=== PATIENT | male | born 1950 | race Caucasian/White ===

== ENCOUNTER 2022-02-10 13:41 | Inpatient (IN) | payer MEDICARE, OTHER, SELFPAY ==
[2022-02-10] VITALS (8 sets, daily range): BP systolic 108–124; BP diastolic 63–67; PULSE 89–103; RESP 15–21; TEMP 36.5–36.6; O2SAT 93–98; BMI 21.5; BMI 19.1
--- NOTE | 2022-02-10 14:47 | EKG12_ITS ---
Test Reason : sob Blood Pressure : / mmHG Vent. Rate : 100 BPM Atrial Rate : 100 BPM P-R Int : 144 ms QRS Dur : 092 ms QT Int : 358 ms P-R-T Axes : 075 083 064 degrees QTc Int : 461 ms Sinus rhythm with Premature atrial complexes Minimal voltage criteria for LVH, may be normal variant ( Rosebud product ) Anteroseptal infarct , age undetermined , cannot be excluded Abnormal ECG Confirmed by JOYCE ROUSE, ALY ([id number]), magazine editor JANA MARLOW ([id number]) on 02/12/2022 8:04:14 AM Referred By: Wolf Confirmed By:ALY COOK MD
--- NOTE | 2022-02-10 14:49 | EDS_ITS ---
HPI History of Present Illness Chief Complaint: Shortness of Breath Informant: patient and family Narrative Narrative: Patient presents with daughter and granddaughter progressive dyspnea worsening over 6 weeks time. Noted some feet swelling at that time. Denies orthopnea however exertional dyspnea with diaphoresis. Yesterday going up 13 steps was winded and diaphoretic per family. Took him a few minutes to recover. Denies chest pains or tightness. Reports however 2 months ago while mowing the lawn significantly felt bad for a few days. Denies indigestion at that time. Denies chest pains at that time. He has not seen a PCP in years however did see surgeon Dr. Whitley a year ago for inguinal hernia repair. Tobacco history however stopped smoking 5 weeks ago when symptoms started to get worse. No history of stress test or heart caths. He denies any cough. Prior similar symptoms: No PFSH PFSH Medical History Anxiety Depression Seizures Smoker Substance abuse Home Medications NK 02/10/22 [History Last Taken Unknown] Allergy/AdvReac Type Severity Reaction Status Date / Time bee venom protein (honey bee) Allergy Anaphylaxis Verified 02/10/22 13:47 Penicillins Allergy Other Verified 02/10/22 13:47 Surgical History History of inguinal hernia repair Social History Smoking Status: Former smoker ROS ROS ED Constitutional Constitutional ED: Denies chills, fever(s) or sweats Eyes Eyes: Denies change in vision ENT ENT ED: Denies dysphagia or sore throat Cardiovascular Cardiovascular: Reports leg edema; Denies chest pain, palpitations or racing heartbeat Respiratory/Chest Respiratory/Chest: Reports dyspnea and dyspnea on exertion; Denies cough Gastrointestinal Gastrointestinal: Denies abdominal pain, diarrhea, nausea or vomiting Genitourinary Genitourinary ED: Denies dysuria, hematuria or urinary frequency Musculoskeletal Musculoskeletal: Denies back pain, extremity pain or neck pain Integumentary Denies rash or wounds Neurologic Neurologic: Denies headache(s), paresthesias or weakness EXAM Physical Exam Const Vital Signs: 02/10/22 13:43 02/10/22 14:04 02/10/22 14:16 Temperature 97.7 F L Temperature Source Temporal Pulse Rate 100 97 Respiratory Rate 20 H 15 Respiratory Effort Short of Breath Respiratory Depth Shallow Respiratory Pattern Normal Blood Pressure 108/67 121/63 H Blood Pressure Mean 80 82 Pulse Ox 96 98 Oxygen Delivery Method Room Air Room Air Room Air 02/10/22 16:19 Temperature Temperature Source Pulse Rate 91 Respiratory Rate 16 Respiratory Effort Respiratory Depth Respiratory Pattern Blood Pressure 108/67 Blood Pressure Mean 80 Pulse Ox 93 Oxygen Delivery Method Room Air Positive well nourished and well developed General Appearance ED: well developed and NAD HEENT Reports moist mucous membranes normocephalic and atraumatic Eyes PERRL, EOMs intact bilaterally and conjunctivae normal General Eye ED: Yes normal appearance of both eyes Neck no lymphadenopathy and supple General: Negative for tenderness Chest Wall Chest: Negative for tenderness Resp normal respiratory effort and normal air movement Effort and Inspection: symmetric chest movement; Negative for respiratory distress Cardio regular rate, regular rhythm and no murmurs Peripheral Pulses: pulses 2+ throughout GI normal to inspection, nondistended, normoactive bowel sounds and non-tender Palpation: Negative for guarding or rebound tenderness present Back/Spine no CVA tenderness and no thoracic nor lumbar tenderness Extremity normal to inspection Extremity Narrative: Bilateral feet edema. General Extremety ED: Yes edema; Negative for tenderness General Extremity: edema Neuro oriented x3 and no sensory deficits noted Sensorium / Orientation: awake and alert Skin no rashes or lesions noted and no wounds MDM MDM MDM Narrative Medical decision making narrative: Patient at rest with no symptoms. EKG with large Q waves anterior leads. No old for comparison. With patient's history concerns he may had an VA approximately 8 weeks ago while mowing the lawn. He became more symptomatic over the last 6 weeks with swelling. He denies orthopnea. Tobacco history. Troponin returned at 1792. BNP 1013. Chest x-ray reviewed by myself and read by radiology concerns for vascular congestion. White count 15 hemoglobin 12.8. Creatinine 0.97. I performed a bedside ultrasound, appears lateral wall motion abnormality mild. There is no septal abnormality. I did not see any right heart dilatation. I discussed with trucker Dr. Enciso, will start heparin, he will be admitted to medicine for echocardiogram and likely catheterization. I spoke with hospitalist Dr. Cruz for admission. I did order 20 mg IV Lasix for concerns for heart failure. Lab Data Attestation: I reviewed the patient's lab results. Labs: Laboratory Results - last 24 hr 02/10/22 02/10/22 02/10/22 15:18 15:18 15:18 WBC 15.2 H RBC 4.80 Hgb 12.8 L Hct 40.6 MCV 84.6 MCH 26.7 L MCHC 31.5 L RDW Std Deviation 47.0 H RDW Coeff of Leeanne 15.3 H Plt Count 322 MPV 11.6 Immature Gran % (Auto) 0.800 Neut % (Auto) 80.6 H Lymph % (Auto) 8.7 L [place] % (Auto) 7.8 Eos % (Auto) 1.8 Baso % (Auto) 0.3 Absolute Neuts (auto) 12.3 H Absolute Lymphs (auto) 1.32 Nucleated RBC % 0 PT 14.2 INR 1.1 APTT 29.5 Sodium 140 Potassium 4.3 Chloride 108 H Carbon Dioxide 25.0 Anion Gap 7 BUN 20 H Creatinine 0.97 Estim Creat Clear Calc 68.19 Est GFR (MDRD) Af Amer 98 Est GFR (MDRD) Non-Af 81 BUN/Creatinine Ratio 20.6 H Glucose 112 H Calcium 9.3 Troponin I High Sens 1792 H* B-Natriuretic Peptide 02/10/22 02/10/22 15:18 17:18 WBC RBC Hgb Hct MCV MCH MCHC RDW Std Deviation RDW Coeff of Leeanne Plt Count MPV Immature Gran % (Auto) Neut % (Auto) Lymph % (Auto) [place] % (Auto) Eos % (Auto) Baso % (Auto) Absolute Neuts (auto) Absolute Lymphs (auto) Nucleated RBC % PT 14.6 INR 1.2 APTT 32.7 Sodium Potassium Chloride Carbon Dioxide Anion Gap BUN Creatinine Estim Creat Clear Calc Est GFR (MDRD) Af Amer Est GFR (MDRD) Non-Af BUN/Creatinine Ratio Glucose Calcium Troponin I High Sens B-Natriuretic Peptide 1013.2 H Radiography Diagnostic Testing: Clinical Impression(s) from Imaging Studies Chest X-Ray 02/10/22 15:05 IMPRESSION: Findings suggestive of a mild degree of CHF superimposed on chronic interstitial fibrosis with blunting of both cause phrenic angles. Electronically Signed: Seven Zhang MD at 15:30 EDT , EKG Initial EKG: Attestation: I personally reviewed and interpreted this EKG as follows: Comments: Sinus rate of 100, no ST changes. Large Q waves noted on the anterior leads. No old for comparison. Critical Care Time Critical Care Time: Yes Critical care time (excluding procedures): 30-74 minutes, Discussing w/Patient &/or Family/Glass Checker, Discussing w/Consultants, Arranging Admission or Transfer, Performing Direct Patient Care at Bedside and - (40 minutes) Discharge Plan Dx/Rx/DC Orders Clinical Impression: NSTEMI (non-ST elevated myocardial infarction), CHF (congestive heart failure), Exertional shortness of breath Disposition Disposition: Acute Care Hospital [facility] Discharge Date/Time: 02/10/22 17:54
--- NOTE | 2022-02-10 15:05 | RAD_ITS ---
STUDY: X-RAY CHEST REASON FOR EXAM: Male, 72 years old. Chronic shortness of breath. Swelling of lower extremities. TECHNIQUE: PA and lateral views of the chest. COMPARISON: None. FINDINGS: EKG electrodes are seen. There is evidence of increased interstitial markings involving both lungs worse in the lower lobes with areas of confluence and honeycombing. This is suggestive of chronic interstitial fibrosis. Mild degree of the overlying CHF should be ruled out. There is blunting of both kyphotic angles. Normal size heart. Normal mediastinum and glenn. Normal visualized pulmonary arteries. There is atherosclerotic calcification of the aortic arch with tortuosity. There are degenerative changes of the visualized thoracic spine. Normal visualized ribs, clavicles, and shoulders. There is no demonstrated abnormality of the visualized soft tissue structures of the upper abdomen. RAD/Chest PA and Lateral IMPRESSION: Findings suggestive of a mild degree of CHF superimposed on chronic interstitial fibrosis with blunting of both cause phrenic angles. Electronically Signed: Seven Zhang MD at 15:30 EDT ,
[2022-02-10] MEDS: Aspirin 81 MG TAB.CHEW 324 MG PO (15:16)
[2022-02-10 15:29] LABS: Absolute Lymphocyte Count 1.32 X10^3/uL (0.83-4.51); Absolute Neutrophil Count 12.3 X10^3/uL (2.0-7.7); Basophil# 0.05 X10^3/uL; Basophil% 0.3 % (0-1); Eosinophil# 0.27 X10^3/uL; Eosinophils% 1.8 % (0-5); Hematocrit 40.6 % (40-54); Hemoglobin 12.8 g/dL (13.0-16.5); Lymphocyte # 1.32 X10^3/ul (0.83-4.51); Lymphocyte % 8.7 % (19-41); Mean Corp Hgb Conc 31.5 g/dL (32-36); Mean Corpuscular Hgb 26.7 pg (27.0-32.0); Mean Corpuscular Volume 84.6 fL (80-94); Mean Platelet Vol. 11.6 fl (6.2-12.0); Monocyte# 1.19 X10^3/uL; Monocyte% 7.8 % (0-10); NRBC Flagged by Analyzer 0 % (0-5); Neutrophil # 12.28 X10^3/uL (2.7-7.7); Neutrophil % 80.6 % (47-70); Platelet Count 322 K/mm3 (150-450); RBC Distribution Width CV 15.3 % (11.6-14.6); White Blood Count 15.2 K/mm3 (4.4-11.0)
[2022-02-10 15:42] LABS: International Normalized Ratio 1.1; Prothrombin Time (Protime)PT. 14.2 SECONDS (11.7-14.9)
[2022-02-10 15:43] LABS: Partial Thromboplast Time 29.5 Seconds (24.1-36.2)
[2022-02-10 16:06] LABS: Anion Gap 7 (5-15); BUN 20 mg/dL (7-18); BUN/Creat Ratio 20.6 RATIO (10-20); Calcium,Total 9.3 mg/dL (8.5-10.1); Chloride 108 mmol/L (98-107); Creatinine, Serum 0.97 mg/dL (0.70-1.30); EST Glomerular Filtration Rate 81 mL/min (>60); Est Glom Filt Rate - Afr Amer 98 mL/min (>60); Estimated Creatinine Clearance 68.19 ml/min; Glucose 112 mg/dL (74-106); Potassium 4.3 mmol/L (3.5-5.1); Sodium Level 140 mmol/L (136-145); Troponin-I HS (w/2H Reflex) 1792 pg/mL (3.0-78.0)
[2022-02-10 16:51] LABS: BNP,B-Type NATRIURETIC PEPTIDE 1013.2 pg/mL (0-100)
[2022-02-10 17:23] LABS: Reflex Troponin-HS? (from REC) Y
[2022-02-10] MEDS: Furosemide 20 MG/2 ML VIAL IV ×2 (17:25→21:44)
[2022-02-10] MEDS: Heparin Injection (Vial) 5,000 UNIT/ML VIAL 4000 UNIT IV (17:25)
[2022-02-10] MEDS: HEPARIN/D5w 25,000 UNITS 25,000 UNITS/250 ML IV.SOLN. 8 UNITS CONT INF (17:26)
[2022-02-10 17:36] LABS: International Normalized Ratio 1.2; Prothrombin Time (Protime)PT. 14.6 SECONDS (11.7-14.9)
[2022-02-10 17:37] LABS: Partial Thromboplast Time 32.7 Seconds (24.1-36.2)
--- NOTE | 2022-02-10 17:40 | HP.PCM_ITS ---
Documented by User: LUDY Colindres 02/10/22 17:57 HPI - General General Date of Admission: 02/10/22 Date of Service: 02/10/22 Chief Complaint: Shortness of breath HPI Narrative DEMETRIUS GABRIEL, is a 72 M who presents with complaints of shortness of breath. Patient states approximately 3 months ago he had a similar episode and since then he has noticed his legs have been swelling. Patient states approximately 1 month patient has had progressively worsening dyspnea. Family encouraged patient to come in and he was agreeable since his shortness of breath is getting worse. Patient states that he has not seen a physician in years other than seeing a surgeon for his hiatal hernia repair in August. Patient states that he quit smoking approximately 1 month ago because of the shortness of breath. Pat tamara states that he has no known cardiac history and has never had a stress test or heart cath in the past. Patient states that his hernia repair is surgical history. [facility] Medical History Anxiety Depression Seizures Smoker Substance abuse Home Medications NK 02/10/22 [History Last Taken Unknown] Allergy/AdvReac Type Severity Reaction Status Date / Time bee venom protein (honey bee) Allergy Anaphylaxis Verified 02/10/22 13:47 Penicillins Allergy Other Verified 02/10/22 13:47 Surgical History History of inguinal hernia repair Social History Smoking Status: Former smoker ROS Constitutional Constitutional: Reports weakness and weight gain; Denies anorexia, change in weight, chills, fatigue, fever(s) or malaise Cardiovascular Cardiovascular: Reports dyspnea on exertion, easily tiring during activity, fatigue, leg edema and weakness in extremities; Denies chest pain or edema Respiratory/Chest Respiratory/Chest: Reports shortness of breath with exertion; Denies cough Gastrointestinal Gastrointestinal: Denies abdominal pain, constipation, diarrhea, nausea or vomiting Genitourinary Genitourinary: Denies dysuria Musculoskeletal Musculoskeletal: Denies back pain, extremity pain, joint pain, joint stiffness or joint swelling Integumentary Integumentary: Denies dry skin Neurologic Neurologic: Denies abnormal gait, abnormal speech, confusion, dizziness or focal weakness Psychiatric Psychiatric: Denies anxiety or depression Endocrine Endocrinology: Denies change in body appearance Hematologic/Lymphatic Hematologic/Lymphatic: Denies anemia Vital Signs Vital Signs Vital Signs: 02/10/22 13:43 02/10/22 14:04 02/10/22 14:16 Temperature 97.7 F L Temperature Source Temporal Pulse Rate 100 97 Respiratory Rate 20 H 15 Respiratory Effort Short of Breath Respiratory Depth Shallow Respiratory Pattern Normal Blood Pressure 108/67 121/63 H Blood Pressure Mean 80 82 Pulse Ox 96 98 Oxygen Delivery Method Room Air Room Air Room Air 02/10/22 16:19 Temperature Temperature Source Pulse Rate 91 Respiratory Rate 16 Respiratory Effort Respiratory Depth Respiratory Pattern Blood Pressure 108/67 Blood Pressure Mean 80 Pulse Ox 93 Oxygen Delivery Method Room Air Weight Weight: 150 lb Body Mass Index (BMI) 21.5 Physical Exam Const alert, oriented x3 and no apparent distress General Appearance: cooperative HEENT normocephalic, head/scalp atraumatic and moist oral mucous membranes Eyes conjunctivae normal and no scleral icterus Neck no lymphadenopathy and supple General: trachea midline Resp normal respiratory effort and normal air movement Effort and Inspection: able to speak in complete sentences and symmetric chest movement Auscultation: crackles bilateral base and diminished lung sounds Cardio regular rate, regular rhythm, S1 normal heart sound and S2 normal heart sound Heart Sounds: murmur systolic GI normal to inspection, nondistended, normoactive bowel sounds, soft to palpation and non-tender Extremity normal capillary refill and no clubbing, cyanosis or edema Skin General Skin Exam: no breakdown Lesions: no lesions Rashes: no rashes Neuro no focal motor deficits and no sensory deficits noted Speech: speech normal Psych thought process normal, cooperative and affect normal Results Lab / Micro Data Result Diagrams: 02/10/22 15:18 02/10/22 15:18 Labs: Laboratory Results - last 24 hr 02/10/22 15:18: WBC 15.2 H, RBC 4.80, Hgb 12.8 L, Hct 40.6, MCV 84.6, MCH 26.7 L , MCHC 31.5 L, RDW Std Deviation 47.0 H, RDW Coeff of Leeanne 15.3 H, Plt Count 322, MPV 11.6, Immature Gran % (Auto) 0.800, Neut % (Auto) 80.6 H, Lymph % (Auto) 8.7 L, Lee % (Auto) 7.8, Eos % (Auto) 1.8, Baso % (Auto) 0.3, Absolute Neuts (auto) 12.3 H, Absolute Lymphs (auto) 1.32, Nucleated RBC % 0 02/10/22 15:18: PT 14.2, INR 1.1, APTT 29.5 02/10/22 15:18: Sodium 140, Potassium 4.3, Chloride 108 H, Carbon Dioxide 25.0, Anion Gap 7, BUN 20 H, Creatinine 0.97, Estim Creat Clear Calc 68.19, Est GFR (MDRD) Af Amer 98, Est GFR (MDRD) Non-Af 81, BUN/Creatinine Ratio 20.6 H, Glucose 112 H, Calcium 9.3, Troponin I High Sens 1792 H* 02/10/22 15:18: B-Natriuretic Peptide 1013.2 H 02/10/22 17:18: PT 14.6, INR 1.2, APTT 32.7 Radiology Impression Chest X-Ray 02/10/22 15:05 IMPRESSION: Findings suggestive of a mild degree of CHF superimposed on chronic interstitial fibrosis with blunting of both cause phrenic angles. Electronically Signed: Seven Zhang MD at 15:30 EDT , Assessment & Plan Assessment/Plan (1) NSTEMI (non-ST elevated myocardial infarction): (2) CHF (congestive heart failure): PLAN: Plan 1. NSTEMI -Admit to PCU -Consult cardiology, case discussed with Dr. Enciso by ER physician as well as attending physician. -Patient initiated on carvedilol 3.125 twice daily and atorvastatin 40 mg nightly -CBC, CMP, lipid panel ordered for a.m. -Patient initiated on heparin drip in ER, will continue -Plan for patient to get echocardiogram in a.m. and subsequent cardiac ca theterization -Has a MODESTA score of 3 and heart score of 8 -Trend cardiac enzymes -N.p.o. at midnight for cardiac catheterization -Patient has elevated white blood cell count however this is likely reactive -Troponin 1792 and BNP 1013.2 -EKG in ER demonstrates sinus rate of [address] changes. Large Q waves noted on the anterior leads 2. Congestive heart failure, unknown etiology -Patient has significant systolic murmur and 2+ pitting edema to lower extremities -Elevate bilateral lower extremities -Daily weights with strict intake and output -Lasix 20 mg every 8 hours ordered -cardiology following DVT prophylaxis-not indicated, patient on heparin drip This patient was seen by LUDY Colindres under the supervision of Dr. Cruz. 30 minutes spent in clinical coordination of patient's plan of care. Documented by User: Dr. Aravind Cruz, 02/10/22 18:16 HPI - General General Date of Admission: 02/10/22 [facility] Medical History Anxiety Depression Seizures Smoker Substance abuse Home Medications NK 02/10/22 [History Last Taken Unknown] Allergy/AdvReac Type Severity Reaction Status Date / Time bee venom protein (honey bee) Allergy Anaphylaxis Verified 02/10/22 13:47 Penicillins Allergy Other Verified 02/10/22 13:47 Surgical History History of inguinal hernia repair Social History Smoking Status: Former smoker Results Lab / Micro Data Result Diagrams: 02/10/22 15:18 02/10/22 15:18 Assessment & Plan Assessment/Plan (1) NSTEMI (non-ST elevated myocardial infarction): (2) CHF (congestive heart failure): Charges/Coding Addendum Addendum: Patient was seen and salmon independently of Jacquie Ferguson today, he came to the ER today for evaluation of shortness of breath, patient states that he has been actually short of breath times several weeks but has been progressively getting worse. Patient has also had lower extremity edema. The patient's daughter is present at the time my examination and she states that she noted that he has had lower extremity swelling for at least 2 to 3 months-she believes it started after he was mowing the lawn 1 afternoon and felt unwell, he was lying in bed for approximately 2 days after this incident. Patient does not go to a doctor on a routine basis. Patient denies any chest pain today. Patient takes no medications on a routine basis. On examination he appeared in good health and spirits. Vital signs as documented. Skin warm and dry and without overt rashes. Neck without JVD, neck was supple, trachea midline, thyroid was normal. Lungs-there were noted to be inspiratory rales at the bases bilaterally, normal air movement was noted. Heart exam notable for regular rhythm, there was noted to be a 3/6 systolic murmur at the right sternal border and apex, no rubs or gallops. Abdomen unremarkable and without evidence of organomegaly, masses, or abdominal aortic enlargement. Bowel sounds are present, abdomen is not distended. Extremities nonedematous, no cyanosis was noted, no clubbing was noted. Neuro: Cranial nerves II through XII are grossly intact, no focal motor deficits were noted, sensation to light touch and pinprick intact, motor exam 5/5 throughout. Psych: Patient is alert and oriented x3, he does not appear anxious or depressed, he does not appear agitated. Work-up in the emergency room included an EKG which showed nonspecific ST elevation in the anterior wall leads along with Q waves present, patient's chest x-ray showed evidence of mild CHF, patient's pulse ox on room air was adequate above 90% even on ambulation. Patient had an elevated troponin at 1792 and an elevation in his white blood cell count at 15,200, patient's beta nitric peptide was elevated at 1013. Impression: #1 [id number] will be admitted to PCU, he will be seen in consultation by cardiology, patient will have an echocardiogram early tomorrow morning and then most probably will need to undergo heart catheterization tomorrow. Patient is aware of this, we discussed it with his daughter. Patient will be placed on a beta-jonatan and a statin, lipid profile will be obtained tomorrow morning. #2 systolic murmur-possibly secondary to mitral regurg, patient will have an echocardiogram tomorrow morning #3 congestive heart failure-type unknown at this time, suspect it may be systolic congestive heart failure, patient will be placed on IV Lasix 20 mg every 8 hours along with potassium supplementation #4 leukocytosis-possibly reactive in nature, CBC will be rechecked I have reviewed Jacquie Ferguson's history and physical including her medical assessment and plan of care and with the above additions endorse it. Total clinical time spent by myself addressing the patient's medical issues, reviewing the data, and communicating with patient's care team: 48-minutes Visit Charges Inpatient E&M: [id number] Init Hosp L3
--- NOTE | 2022-02-10 18:23 | EKG12_ITS ---
Test Reason : SERIES Blood Pressure : / mmHG Vent. Rate : 082 BPM Atrial Rate : 082 BPM P-R Int : 150 ms QRS Dur : 092 ms QT Int : 436 ms P-R-T Axes : 062 078 078 degrees QTc Int : 509 ms Sinus rhythm with Premature atrial complexes Moderate voltage criteria for LVH, may be normal variant ( Sokolow-Etienne , Vlad product ) Septal infarct , age undetermined ST & T wave abnormality, consider anterolateral ischemia Prolonged QT Abnormal ECG When compared with ECG of 10-FEB-2022 19:24, MANUAL COMPARISON REQUIRED, DATA IS UNCONFIRMED Confirmed by MAY ROUSE, IGLESIA ([id number]), film editor supervisor JANA MARLOW ([id number]) on 02/13/2022 2:19:58 PM Referred By: ANNA Confirmed By:СЕРГЕЙ OLVERA MD
--- NOTE | 2022-02-10 18:45 | PCM.CONS.C ---
Assessment & Plan Assessment/Plan (1) NSTEMI (non-ST elevated myocardial infarction): PLAN: The patient has findings compatible with a non-ST segment elevation OK. Its unclear if he had a previous acute coronary syndrome event approximately 2 to 3 months ago based upon his history. However at the present time he does have ongoing concerning symptoms and abnormal cardiac enzymes and an abnormal ECG. At the moment he will continue to be monitored. He will initiate medical therapy which will include agents such as aspirin, nitrates as needed, beta-blockers, lipid-lowering agents, antiplatelet and anticoagulant agents, etc. He will have further evaluation of his left ventricular wall motion and systolic function with a transthoracic echocardiogram. He has been recommended for further evaluation of his coronary anatomy with a diagnostic cardiac catheterization. The procedure and risk were discussed with the patient with his family members present. He was agreeable to this approach. (2) Cardiac murmur: PLAN: The patient does have a cardiac murmur. There is concern this may be related to aortic valve stenosis. However, other valvular related abnormalities such as MR cannot necessarily be excluded. If he does have hemodynamically significant valvular heart disease this could be contributing factor to some of his symptoms/findings. At the present time he will be further evaluated with a transthoracic echocardiogram. (3) CHF (congestive heart failure): PLAN: The patient also appears to have evidence of CHF based upon his history, exam, and his radiologic studies. This may be secondary to concerns of a previous acute coronary syndrome event and possible left ventricular systolic dysfunction as well as underlying valvular heart disease. At the moment he will be monitored. He will continue medical therapy which will include diuretic therapy. He will continue noninvasive and invasive evaluation as noted above. (4) Weight loss: PLAN: The patient states he has had a weight loss of approximately 20 pounds recently. If the patient is found to have significant cardiovascular disease especially with respect to diminished LV systolic function/LVEF, then he could have cardiac cachexia. Otherwise the patient will need to be further evaluated for other etiologies of unexplained weight loss. Addt'l Comments The above has been discussed and reviewed with the patient, his daughter, his granddaughter, Dr. Aldana of the [facility] emergency department staff and Dr. Cruz the [facility] staff. This note was generated using a voice recognition system and there may be incorrect words, spelling or punctuation that were not noted when reviewing the office note prior to saving. HPI Consult Data Date of Consult: 02/10/22 HPI Narrative HPI Narrative: DEMETRIUS GABRIEL, is a 72 year old white male who presents for vascular consultation from based upon concerns of shortness of breath/dyspnea with exertion, peripheral pitting edema, a cardiac murmur, abnormal cardiac enzymes compatible with a non-ST segment elevation OK, superimposed upon a recent approximate 20 pound weight loss. According to the patient, his daughter, and his granddaughter, he had been active until approximately 2 to 3 months ago. He states after using a push mower on an incline he felt tired and fatigued. He states for approximately 2 days he felt that he could do nothing. He does not recall any chest discomfort at that time. Since that time he states he has noted shortness of breath and dyspnea with exertion such as going up a flight of stairs. He states that he has still been mowing the lawn on his riding lawnmower but has not used a push mower. His family states that he cannot lie still for very long without changing position because of his breathing. He has noted episodes of diaphoresis. There is been no report of nausea or emesis. Since the original event he began noting lower extremity edema. This is progressed over time. He states also over the period of time he has noted an approximate 20 pound weight loss. He was brought to the emergency department this day for further evaluation. He was found to have abnormal high-sensitivity troponin I levels and an abnormal ECG. His chest x-ray suggested increased pulmonary vascularity. He was subsequently recommended for admission to the hospital for further evaluation and care including cardiovascular consultation. He states that he does not traditionally follow with a physician. He states earlier this year through the [facility] system in [place], [place], he underwent an inguinal hernia repair. To the best of his knowledge this was without obvious cardiovascular complication. He states that he occasionally has taken an aspirin or part of an aspirin tablet with the hopes this would help benefit his heart. He states he does this based upon his father's history and his grandfather's history of having cardiovascular disease at approximately the same age that he is now. [facility] Medical History Anxiety Depression Seizures Smoker Substance abuse Home Medications NK 02/10/22 [History Last Taken Unknown] Allergy/AdvReac Type Severity Reaction Status Date / Time bee venom protein (honey bee) Allergy Anaphylaxis Verified 02/10/22 13:47 Penicillins Allergy Other Verified 02/10/22 13:47 Surgical History History of inguinal hernia repair Social History Smoking Status: Former smoker ROS Constitutional Constitutional: Reports fatigue, poor appetite and weakness Eyes Eyes: Reports none ENT HEENT: Reports none Cardiovascular Cardiovascular: Reports diaphoresis, dyspnea, dyspnea at rest, dyspnea on exertion and edema Respiratory/Chest Respiratory/Chest: Reports dyspnea and dyspnea on exertion Gastrointestinal Gastrointestinal: Reports weight changes Genitourinary Genitourinary: Reports as per HPI Musculoskeletal Musculoskeletal: Reports as per HPI Integumentary Integumentary: Reports as per HPI Neurologic Neurologic: Reports as per HPI Psychiatric Psychiatric: Reports as per HPI Physical Exam Const alert, oriented x3 and no apparent distress HEENT normocephalic, head/scalp atraumatic and hearing grossly normal bilaterally Eyes PERRL, EOMs intact bilaterally, conjunctivae normal and no scleral icterus Neck full ROM, supple and no JVD Carotids: delayed carotid upstroke Resp normal respiratory effort Auscultation: rales bilateral base Cardio regular rate, regular rhythm and S1 normal heart sound Heart Sounds: murmur systolic III/ harsh late left sternal border, LVOT and sternal notch to carotid arteries and abnormal sounds diminished A2 GI normal to inspection, nondistended, normoactive bowel sounds Extremity General Extremity: edema bilateral lower extremity Details: mild Skin no rashes or lesions noted Psych mental status grossly normal Risk Stratification Risk Stratification Applicable: Yes Age >/= 65: Yes >/= 3 CAD Risk Factors (HTN, HLD, DM, family hx of CAD, or current smoker): No Aspirin Use in the Past 7 Days: No Severe Angina (>/= episodes in 24 hours): No EKG ST Changes >/= 0.5mm: No Positive Cardiac Marker: Yes MODESTA Risk Stratification Score: 2 MODESTA % Risk: 8% Risk Procedure Criteria Type of Procedure Procedure Type: Elective Elective Risks - COVID COVID Risk Discussion: The surgeon/proceduralist and patient have discussed in detail the risk of exposure to and/or potential harm posed by the COVID-19 virus with having a surgery/procedure at this time versus the risk of delaying the surgery/procedure. It is not possible to know either the risk of delaying the surgery or procedure or chance of getting an infection with perfect accuracy, but a joint decision was made between the patient and the surgeon/proceduralist to proceed at this time with the scheduled surgery/procedure as indicated on the consent form. Objective Data Vital Signs: Vital Signs Temp Pulse Resp BP Pulse Ox O2 Del Method 97.8 F 93 21 H 124/67 H 95 Room Air 02/10/22 18:00 02/10/22 18:00 02/10/22 18:00 02/10/22 18:00 02/10/22 18:00 02/10/22 18:00 Oxygen Delivery Method Room Air Weight: 133 lb 6.075 oz Body Mass Index (BMI) 19.1 Lab / Micro Data Result Diagrams: 02/10/22 15:18 02/10/22 15:18 Labs: Laboratory Results - last 24 hr 02/10/22 15:18: WBC 15.2 H, RBC 4.80, Hgb 12.8 L, Hct 40.6, MCV 84.6, MCH 26.7 L, MCHC 31.5 L, RDW Std Deviation 47.0 H, RDW Coeff of Leeanne 15.3 H, Plt Count 322, MPV 11.6, Immature Gran % (Auto) 0.800, Neut % (Auto) 80.6 H, Lymph % (Auto) 8.7 L, Johnson % (Auto) 7.8, Eos % (Auto) 1.8, Baso % (Auto) 0.3, Absolute Neuts (auto) 12.3 H, Absolute Lymphs (auto) 1.32, Nucleated RBC % 0 02/10/22 15:18: PT 14.2, INR 1.1, APTT 29.5 02/10/22 15:18: Sodium 140, Potassium 4.3, Chloride 108 H, Carbon Dioxide 25.0, Anion Gap 7, BUN 20 H, Creatinine 0.97, Estim Creat Clear Calc 68.19, Est GFR (MDRD) Af Amer 98, Est GFR (MDRD) Non-Af 81, BUN/Creatinine Ratio 20.6 H, Glucose 112 H, Calcium 9.3, Troponin I High Sens 1792 H* 02/10/22 15:18: B-Natriuretic Peptide 1013.2 H 02/10/22 17:18: PT 14.6, INR 1.2, APTT 32.7 Cardiology Labs/Tests 02/10/22 15:18: WBC 15.2 H, RBC 4.80, Hgb 12.8 L, Hct 40.6, MCV 84.6, MCH 26.7 L, MCHC 31.5 L, Plt Count 322, MPV 11.6, Immature Gran % (Auto) 0.800, Neut % (Auto) 80.6 H, Lymph % (Auto) 8.7 L, Johnson % (Auto) 7.8, Eos % (Auto) 1.8, Baso % (Auto) 0.3, Absolute Neuts (auto) 12.3 H, Nucleated RBC % 0 02/10/22 15:18: PT 14.2, INR 1.1, APTT 29.5 02/10/22 15:18: Sodium 140, Potassium 4.3, Chloride 108 H, Carbon Dioxide 25.0, Anion Gap 7, BUN 20 H, Creatinine 0.97, Est GFR (MDRD) Af Amer 98, Est GFR (MDRD) Non-Af 81, BUN/Creatinine Ratio 20.6 H, Glucose 112 H, Calcium 9.3 02/10/22 15:18: B-Natriuretic Peptide 1013.2 H 02/10/22 17:18: PT 14.6, INR 1.2, APTT 32.7 Rhythm: Sinus rhythm EKG: Sinus rhythm; consider voltage criteria for LVH; anteroseptal OK-age undetermined Radiography Diagnostic Testing: Radiology Impression Chest X-Ray 02/10/22 15:05 IMPRESSION: Findings suggestive of a mild degree of CHF superimposed on chronic interstitial fibrosis with blunting of both cause phrenic angles. Electronically Signed: Seven Zhang MD at 15:30 EDT ,
[2022-02-10 19:52] LABS: Troponin-I HS 2790 pg/mL (3.0-78.0)
[2022-02-10] MEDS: Carvedilol 3.125 MG TABLET PO (21:44)
[2022-02-10] MEDS: Atorvastatin Calcium 40 MG Tablet PO (21:44)
[2022-02-10 22:35] LABS: Troponin-I HS 2496 pg/mL (3.0-78.0)
[2022-02-10 23:57] LABS: Partial Thromboplast Time 39.6 Seconds (24.1-36.2)
[2022-02-11] VITALS (21 sets, daily range): BP systolic 91–108; BP diastolic 53–84; PULSE 74–99; RESP 16–18; TEMP 36.5–37; O2SAT 92–97
[2022-02-11] MEDS: Heparin Injection (Vial) 5,000 UNIT/ML VIAL IV (01:30)
[2022-02-11] MEDS: 0.9% Saline Lock 10 ML Syringe IV ×2 (01:31→14:31)
--- NOTE | 2022-02-11 05:00 | EKG12_ITS ---
Test Reason : CP Blood Pressure : / mmHG Vent. Rate : 097 BPM Atrial Rate : 097 BPM P-R Int : 144 ms QRS Dur : 094 ms QT Int : 356 ms P-R-T Axes : 064 050 083 degrees QTc Int : 452 ms Normal sinus rhythm Minimal voltage criteria for LVH, may be normal variant ( [place] product ) Septal infarct (cited on or before 10-FEB-2022) T wave abnormality, consider lateral ischemia Abnormal ECG When compared with ECG of 10-FEB-2022 13:51, Premature atrial complexes are no longer Present Serial changes of Septal infarct Present Confirmed by MAY ROUSE, IGLESIA ([id number]), telegraph editor JANA MARLOW ([id number]) on 02/13/2022 2:21:34 PM Referred By: ANNA Confirmed By:СЕРГЕЙ OLVERA MD
[2022-02-11 05:55] LABS: Absolute Lymphocyte Count 1.54 X10^3/uL (0.83-4.51); Absolute Neutrophil Count 9.9 X10^3/uL (2.0-7.7); Basophil# 0.08 X10^3/uL; Basophil% 0.6 % (0-1); Eosinophil# 0.39 X10^3/uL; Hematocrit 37.5 % (40-54); Hemoglobin 12.1 g/dL (13.0-16.5); Lymphocyte # 1.54 X10^3/ul (0.83-4.51); Lymphocyte % 11.8 % (19-41); Mean Corp Hgb Conc 32.3 g/dL (32-36); Mean Corpuscular Hgb 27.1 pg (27.0-32.0); Mean Corpuscular Volume 84.1 fL (80-94); Mean Platelet Vol. 11.9 fl (6.2-12.0); Monocyte# 1.12 X10^3/uL; Monocyte% 8.6 % (0-10); NRBC Flagged by Analyzer 0 % (0-5); Neutrophil # 9.85 X10^3/uL (2.7-7.7); Neutrophil % 75.5 % (47-70); Platelet Count 273 K/mm3 (150-450); RBC Distribution Width CV 15.2 % (11.6-14.6); RBC Distribution Width SD 45.8 fl (35.1-43.9); Red Blood Count 4.46 M/mm3 (4.6-6.2)
--- NOTE | 2022-02-11 05:55 | ECHOD_ITS ---
Reason For Study: SOB Procedure This was a 2D Doppler, Color Flow transthoracic echocardiogram. Exam performed portable in patient room. Left Ventricle Normal LV size. Mild segmental systolic dysfunction (see wall motion). The estimated ejection fraction is 45 %. Stage 3 diastolic dysfunction. Anterio-Basal: Hypokinetic. Infero-Basal: Hypokinetic. Mid-Anterior : Hypokinetic. Mid-Lateral : Hypokinetic. Mid-Posterior: Hypokinetic. Mid- Inferior: Hypokinetic. Mid-anteroseptal : Hypokinetic. [place] : Hypokinetic. Right Ventricle Normal RV size. Normal systolic function. Atria Normal left atrium. Normal right atrium. No doppler evidence for ASD. Mitral Valve There is no mitral annular calcification. Moderate focal mitral valve calcification of the anterior leaflet. Moderate (2+) eccentric mitral valve insufficiency. Tricuspid Valve Normal tricuspid valve. Trivial tricuspid valve insufficiency. Right ventricular systolic pressure estimated to be 57 mmHg. Aortic Valve The aortic valve leaflets are not well visualized, however, based upon the 2D echocardiographic images obtained, there appears to be thickening, calcification, and partial restriction. Severe aortic stenosis. Mild (1+) aortic valve insufficiency. Pulmonic Valve The pulmonic valve is not well visualized. Trivial pulmonic valve insufficiency. Great Vessels Normal sized aortic root. Pericardium/Pleural No pericardial effusion. Echolucency c/w a pleural effusion. MMode/2D Measurements & Calculations LVIDd: 5.1 cm IVSd: 1.2 cm LVOT diam: 2.0 cm LVIDs: 2.8 cm LVPWd: 1.2 cm LVOT area: 3.0 cm2 RVDd: 3.1 cm FS: 45.4 % Ao root diam: 3.3 cm LAV(MOD-bp): 48.9 ml LVAd ap4: 40.2 cm2 LAV(MOD-bp) Indexed: 27.9 ml/m2 LVLd ap4: 9.1 cm LAV(MOD-sp2): 51.0 ml EDV(MOD-sp4): 145.0 ml LAV(MOD-sp4): 43.2 ml EDV(sp4-el): 150.6 ml LVAs ap4: 27.6 cm2 LVLs ap4: 8.7 cm ESV(MOD-sp4): 73.0 ml ESV(sp4-el): 74.7 ml EF(MOD-sp4): 49.6 % EF(sp4-el): 50.4 % LVAd ap2: 30.3 cm2 SV(MOD-sp4): 72.0 ml SV(MOD-sp2): 29.7 ml LVLd ap2: 8.5 cm EDV(MOD-sp2): 86.3 ml EDV(sp2-el): 91.2 ml LVAs ap2: 24.2 cm2 LVLs ap2: 8.4 cm ESV(MOD-sp2): 56.6 ml ESV(sp2-el): 59.1 ml EF(MOD-sp2): 34.4 % SV(sp4-el): 76.0 ml LA dimension(2D): 4.1 cm LA A4 area: 16.2 cm2 RA A4 area: 11.3 cm2 Doppler Measurements & Calculations MV E max josh: 124.8 cm/sec Lat Peak E' Josh: 11.9 cm/sec Med Peak E' Josh: 6.0 cm/sec MV A max josh: 33.0 cm/sec E/E' lat: 10.5 E/E' med: 20.8 MV E/A: 3.8 Ao V2 max: 434.1 cm/sec AI max josh: 330.0 cm/sec LV V1 max: 97.8 cm/sec Ao max P.0 mmHg AI max P.6 mmHg LV V1 max P.8 mmHg Ao V2 mean: 320.3 cm/sec AI dec slope: 435.9 cm/sec2 LV V1 mean P.1 mmHg Ao mean P.4 mmHg AI P1/2t: 221.8 msec LV V1 mean: 68.6 cm/sec Ao V2 VTI: 99.4 cm LV V1 VTI: 22.3 cm МАРИЯ(I,D): 0.67 cm2 МАРИЯ(V,D): 0.67 cm2 SV(LVOT): 66.6 ml PA V2 max: 61.5 cm/sec TR max josh: 368.6 cm/sec TR max P.4 mmHg ECHO/Echo Complete Interpretation Summary Mild segmental systolic dysfunction (see wall motion). The estimated ejection fraction is 45 %. Moderate focal mitral valve calcification of the anterior leaflet. Moderate (2+) eccentric mitral valve insufficiency. Trivial tricuspid valve insufficiency. The aortic valve leaflets are not well visualized, however, based upon the 2D e chocardiographic images obtained, there appears to be thickening, calcification, and partial res triction. Severe aortic stenosis. Mild (1+) aortic valve insufficiency. Trivial pulmonic valve insufficiency. Echolucency c/w a pleural effusion. Right ventricular systolic pressure estimated to be 57 mmHg c/w pulmonary hyper tension. Stage 3 diastolic dysfunction. Ordering Physician: Vanessa Ferguson Performed By: Kizzy Chandler RDCS
[2022-02-11] MEDS: Furosemide 20 MG/2 ML VIAL IV ×2 (06:16→14:31)
[2022-02-11 06:40] LABS: Magnesium 2.2 mg/dL (1.6-2.6)
[2022-02-11 06:52] LABS: ALB/GLOB Ratio 0.7 RATIO (0.9-2.4); AST(SGOT) 39 U/L (15-37); Alanine Aminotransfer ALT/SGPT 32 U/L (16-61); Albumin, Serum 2.5 g/dL (3.2-5.0); Alkaline Phosphatase 76 U/L (45-117); Anion Gap 7 (5-15); BUN 23 mg/dL (7-18); BUN/Creat Ratio 22.8 RATIO (10-20); Calcium,Total 8.9 mg/dL (8.5-10.1); Chloride 105 mmol/L (98-107); Cholesterol 149 mg/dL (200); Creatinine, Serum 1.01 mg/dL (0.70-1.30); EST Glomerular Filtration Rate 78 mL/min (>60); Est Glom Filt Rate - Afr Amer 94 mL/min (>60); Estimated Creatinine Clearance 52.17 ml/min; Globulin 3.7 g/dL (2.2-4.2); Glucose 116 mg/dL (74-106); High Density Lipoprotein 36 mg/dL; Protein, Total 6.2 g/dL (6.4-8.2); Sodium Level 139 mmol/L (136-145); Triglycerides 102 mg/dL; Very Low Density Lipoprotein 20 mg/dL (5-40)
[2022-02-11] MEDS: Aspirin 81 MG TAB.CHEW PO (08:16)
[2022-02-11] MEDS: Carvedilol 3.125 MG TABLET PO ×2 (08:16→20:53)
[2022-02-11 08:49] LABS: Partial Thromboplast Time 31.5 Seconds (24.1-36.2)
--- NOTE | 2022-02-11 09:25 | CASEMGMT ---
According to the [employer] website, the following are in-network tertiary facilities: [facility], [facility], [facility], [facility], [facility], [place], [facility], and . Brian ANGELES CM
--- NOTE | 2022-02-11 09:36 | PCM.PN.CARD ---
Subjective Subjective The patient is now status post diagnostic cardiac catheterization. He appears to be resting comfortably at the moment with no acute postprocedural related symptoms. Objective Data Vital Signs: Vital Signs Temp Pulse Resp BP Pulse Ox O2 Del Method 97.7 F L 78 18 107/61 94 Room Air 02/11/22 06:00 02/11/22 06:53 02/11/22 06:00 02/11/22 06:00 02/11/22 07:46 02/11/22 08:15 Oxygen Delivery Method Room Air Weight: 119 lb 7.849 oz Body Mass Index (BMI) 19.1 Intake & Output: Intake and Output for Last 24 Hours 02/09/22 02/10/22 02/11/22 23:59 23:59 23:59 Intake Total 89.53 / 89.53 Output Total 200 / 200 Balance -200 / -200 89.53 / 89.53 Lab / Micro Data Result Diagrams: 02/11/22 05:38 02/11/22 05:38 Labs: Laboratory Results - last 24 hr 02/10/22 15:18: WBC 15.2 H, RBC 4.80, Hgb 12.8 L, Hct 40.6, MCV 84.6, MCH 26.7 L, MCHC 31.5 L, RDW Std Deviation 47.0 H, RDW Coeff of Leeanne 15.3 H, Plt Count 322, MPV 11.6, Immature Gran % (Auto) 0.800, Neut % (Auto) 80.6 H, Lymph % (Auto) 8.7 L, [place] % (Auto) 7.8, Eos % (Auto) 1.8, Baso % (Auto) 0.3, Absolute Neuts (auto) 12.3 H, Absolute Lymphs (auto) 1.32, Nucleated RBC % 0 02/10/22 15:18: PT 14.2, INR 1.1, APTT 29.5 02/10/22 15:18: Sodium 140, Potassium 4.3, Chloride 108 H, Carbon Dioxide 25.0, Anion Gap 7, BUN 20 H, Creatinine 0.97, Estim Creat Clear Calc 68.19, Est GFR (MDRD) Af Amer 98, Est GFR (MDRD) Non-Af 81, BUN/Creatinine Ratio 20.6 H, Glucose 112 H, Calcium 9.3, Troponin I High Sens 1792 H* 02/10/22 15:18: B-Natriuretic Peptide 1013.2 H 02/10/22 17:18: PT 14.6, INR 1.2, APTT 32.7 02/10/22 18:30: Troponin I High Sens 2790 H* 02/10/22 21:30: Troponin I High Sens 2496 H* 02/10/22 23:20: APTT 39.6 H 02/11/22 05:38: WBC 13.0 H, RBC 4.46 L, Hgb 12.1 L, Hct 37.5 L, MCV 84.1, MCH 27.1, MCHC 32.3, RDW Std Deviation 45.8 H, RDW Coeff of [place] 15.2 H, Plt Count 273, MPV 11.9, Immature Gran % (Auto) 0.500, Neut % (Auto) 75.5 H, Lymph % (Auto) 11.8 L, [place] % (Auto) 8.6, Eos % (Auto) 3.0, Baso % (Auto) 0.6, Absolute Neuts (auto) 9.9 H, Absolute Lymphs (auto) 1.54, Nucleated RBC % 0 02/11/22 05:38: Sodium 139, Potassium 4.0, Chloride 105, Carbon Dioxide 27.0, Anion Gap 7, BUN 23 H, Creatinine 1.01, Estim Creat Clear Calc 52.17, Est GFR (MDRD) Af Amer 94, Est GFR (MDRD) Non-Af 78, BUN/Creatinine Ratio 22.8 H, Glucose 116 H, Calcium 8.9, Total Bilirubin 0.50, AST 39 H, ALT 32, Alkaline Phosphatase 76, Total Protein 6.2 L, Albumin 2.5 L, Globulin 3.7, Albumin/Globulin Ratio 0.7 L, Triglycerides 102, Cholesterol 149, LDL Cholesterol 93, VLDL Cholesterol 20, HDL Cholesterol 36 L 02/11/22 05:38: Magnesium 2.2 02/11/22 07:46: APTT 31.5 Cardiology Labs/Tests 02/10/22 15:18: WBC 15.2 H, RBC 4.80, Hgb 12.8 L, Hct 40.6, MCV 84.6, MCH 26.7 L, MCHC 31.5 L, Plt Count 322, MPV 11.6, Immature Gran % (Auto) 0.800, Neut % (Auto) 80.6 H, Lymph % (Auto) 8.7 L, [place] % (Auto) 7.8, Eos % (Auto) 1.8, Baso % (Auto) 0.3, Absolute Neuts (auto) 12.3 H, Nucleated RBC % 0 02/10/22 15:18: PT 14.2, INR 1.1, APTT 29.5 02/10/22 15:18: Sodium 140, Potassium 4.3, Chloride 108 H, Carbon Dioxide 25.0, Anion Gap 7, BUN 20 H, Creatinine 0.97, Est GFR (MDRD) Af Amer 98, Est GFR (MDRD) Non-Af 81, BUN/Creatinine Ratio 20.6 H, Glucose 112 H, Calcium 9.3 02/10/22 15:18: B-Natriuretic Peptide 1013.2 H 02/10/22 17:18: PT 14.6, INR 1.2, APTT 32.7 02/10/22 23:20: APTT 39.6 H 02/11/22 05:38: WBC 13.0 H, RBC 4.46 L, Hgb 12.1 L, Hct 37.5 L, MCV 84.1, MCH 27.1, MCHC 32.3, Plt Count 273, MPV 11.9, Immature Gran % (Auto) 0.500, Neut % (Auto) 75.5 H, Lymph % (Auto) 11.8 L, [place] % (Auto) 8.6, Eos % (Auto) 3.0, Baso % (Auto) 0.6, Absolute Neuts (auto) 9.9 H, Nucleated RBC % 0 02/11/22 05:38: Sodium 139, Potassium 4.0, Chloride 105, Carbon Dioxide 27.0, Anion Gap 7, BUN 23 H, Creatinine 1.01, Est GFR (MDRD) Af Amer 94, Est GFR (MDRD) Non-Af 78, BUN/Creatinine Ratio 22.8 H, Glucose 116 H, Calcium 8.9, Total Bilirubin 0.50, Triglycerides 102, Cholesterol 149, LDL Cholesterol 93, VLDL Cholesterol 20, HDL Cholesterol 36 L 02/11/22 05:38: Magnesium 2.2 02/11/22 07:46: APTT 31.5 Rhythm: Sinus rhythm EKG: Sinus rhythm; consider voltage criteria for LVH; poor R wave progression; anteroseptal MO of indeterminate age cannot be excluded; T wave abnormality consider myocardial ischemia-anterior lateral ECHO: Interpretation Summary Mild segmental systolic dysfunction (see wall motion). The estimated ejection fraction is 45 %. Moderate focal mitral valve calcification of the anterior leaflet. Moderate (2+) eccentric mitral valve insufficiency. Trivial tricuspid valve insufficiency. The aortic valve leaflets are not well visualized, however, based upon the 2D echocardiographic images obtained, there appears to be thickening, calcification, and partial restriction. Severe aortic stenosis. Mild (1+) aortic valve insufficiency. Trivial pulmonic valve insufficiency. Echolucency c/w a pleural effusion. Right ventricular systolic pressure estimated to be 57 mmHg c/w pulmonary hypertension. Stage 3 diastolic dysfunction. Cardiac Cath: CONCLUSIONS [place] Multivessel CAD Aortic Valve Calcification- Severe Aortic Valve Insufficiency Mild - Moderate RECOMMENDATIONS Risk factor modification Medical therapy Surgery consult for coronary revascularization Surgery consult for Valve Replacement surgery Case discussed / reviewed with Dr. Amanda of Interventional Cardiology DESCRIPTION OF? PROCEDURE The patient arrived to the procedure lab. The risks and benefits of the procedure as well as a full description of our services here and current unavailability of surgical backup were fully explained to the patient and/or their significant other prior to the catheterization. The Timeout was completed, verifying the correct patient and procedure. The patient's procedural site was prepped and draped in the usual fashion. Local anesthetic was given subcutaneously to right radial region with Lidocaine 2%. Using a modified Seldinger technique, arterial access was obtained via the right radial artery, a 6Fr sheath was inserted.? Left Coronary Artery selective angiography was performed in multiple views using a 5 Fr. 4.0 [place] catheter. Right Coronary Artery selective angiography was then performed in multiple views using a 5 Fr. 4.0 [place] catheter.The arterial sheath was pulled and a TR Band was applied for hemostasis - 10cc air CORONARY ANGIOGRAPHY DOMINANCE:? 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 Electronically Signed: Seven Zhang MD at 15:30 EDT , Echocardiogram 02/11/22 05:55 Interpretation Summary Mild segmental systolic dysfunction (see wall motion). The estimated ejection fraction is 45 %. Moderate focal mitral valve calcification of the anterior leaflet. Moderate (2+) eccentric mitral valve insufficiency. Trivial tricuspid valve insufficiency. The aortic valve leaflets are not well visualized, however, based upon the 2D echocardiographic images obtained, there appears to be thickening, calcification, and partial restriction. Severe aortic stenosis. Mild (1+) aortic valve insufficiency. Trivial pulmonic valve insufficiency. Echolucency c/w a pleural effusion. Right ventricular systolic pressure estimated to be 57 mmHg c/w pulmonary hypertension. Stage 3 diastolic dysfunction. Ordering Physician: Vanessa Ferguson Performed By: Kizzy Chandler, [facility] Physical Exam Const alert, oriented x3 and no apparent distress HEENT normocephalic, head/scalp atraumatic and hearing grossly normal bilaterally Eyes PERRL, EOMs intact bilaterally, conjunctivae normal and no scleral icterus Neck full ROM, supple and no JVD Carotids: delayed carotid upstroke Resp normal respiratory effort Auscultation: rales bilateral (Somewhat improved compared to previous examination) base Cardio regular rate, regular rhythm and S1 normal heart sound Heart Sounds: murmur systolic III/ harsh late left sternal border, LVOT and sternal notch to carotid arteries and abnormal sounds diminished A2 GI normal to inspection, nondistended, normoactive bowel sounds Extremity General Extremity: edema bilateral lower extremity Details: mild Skin no rashes or lesions noted Psych mental status grossly normal Assessment & Plan Assessment/Plan (1) NSTEMI (non-ST elevated myocardial infarction): PLAN: The patient has findings compatible with a non-ST segment elevation MO. Its unclear if he had a previous acute coronary syndrome event approximately 2 to 3 months ago based upon his history. He has proceeded with continued cardiac enzyme monitoring, ECG monitoring, transthoracic echocardiogram, and now diagnostic cardiac catheterization. His ECG does demonstrate changes in the anterolateral distribution compatible with myocardial ischemia. His transthoracic echocardiogram is as noted. His diagnostic cardiac catheterization does demonstrate the appearance of underlying CAD involving the LAD and LCx distributions. From a cardiac standpoint he would continue medical management as tolerated-taking into consideration the appearance of severe aortic valve stenosis. He should also be considered for transfer to a tertiary care center for heart team evaluation of his underlying CAD and valvular related issues for consideration for either surgical based coronary revascularization therapy and aortic valve replacement versus high risk percutaneous coronary artery revascularization and percutaneous/TAVR procedure. (2) Valvular heart disease: PLAN: The patient does have a cardiac murmur. Based upon his transthoracic echocardiogram there is supportive evidence that he has hemodynamically significant valvular heart disease with severe aortic valve stenosis as well as an element of moderate mitral valve regurgitation. Based upon the severe aortic valve stenosis he should be considered for evaluation at a tertiary care center for aortic valve replacement therapy. (3) CHF (congestive heart failure): PLAN: The patient also appears to have evidence of CHF based upon his history, exam, and his radiologic studies. This appears to be secondary to a combination of issues with respect to concerns of his somewhat diminished LV systolic function/LVEF as well as his valvular heart disease. Thus he will continue medical therapy locally. Again he should be evaluated at a tertiary care center for his CAD and valvular disease related issues. (4) Weight loss: PLAN: The patient states he has had a weight loss of approximately 20 pounds recently. It is unclear as to whether or not this is related to his underlying cardiovascular disease versus a noncardiac etiology. From a cardiac standpoint he will continue evaluation care as noted above. Addt'l Comments The patient's case was discussed and viewed with the patient, his daughter, and the [facility] staff. At the present time would be reasonable to continue the patient on medical therapy to improve his symptoms and objective findings. However, it would also be reasonable for the patient to be transferred to a tertiary care center for further evaluation and care for revascularization therapy as well as aortic valve replacement therapy-either percutaneously or surgically. The family opted for transfer to the [facility] system. Dr. Rush of the [facility] staff agreed to initiate the transfer process. This note was generated using a voice recognition system and there may be incorrect words, spelling or punctuation that were not noted when reviewing the office note prior to saving. Procedure Criteria Type of Procedure Procedure Type: Elective Elective Risks - COVID COVID Risk Discussion: The surgeon/proceduralist and patient have discussed in detail the risk of exposure to and/or potential harm posed by the COVID-19 virus with having a surgery/procedure at this time versus the risk of delaying the surgery/procedure. It is not possible to know either the risk of delaying the surgery or procedure or chance of getting an infection with perfect accuracy, but a joint decision was made between the patient and the surgeon/proceduralist to proceed at this time with the scheduled surgery/procedure as indicated on the consent form.
[2022-02-11] MEDS: Potassium Chloride Oral Tablet 20 MEQ PO (09:49)
[2022-02-11] MEDS: 0.9% Normal Saline 1,000 ML 50 ML IV (09:49)
--- NOTE | 2022-02-11 10:17 | CL.D_ITS ---
Patient Name: DEMETRIUS GABRIEL Study Date: 02/11/2022 Performing: Kalia Enciso MD Ht: 70 inches 177.8 cm : 1950 Wt: 119.6 lbs 54.2 kg Age: 72 Gender: male BSA: 1.68 PROCEDURE(S) PERFORMED [id number])[facility] CLINICAL PROFILE AND INDICATIONS Indications: ACS <= 24 hrs, Suspected CAD, Valvular Disease, LV Dysfunction Heart Failure: NYHA Class: 3, Newly Diagnosed: Yes, Heart Failure Type: Systolic Stress/Imaging Stress/Image Study Performed: No Angina Classification Anginal Classification w/in 2 Weeks: CCS III CAD Presentations: Non-STEMI. CONCLUSIONS [place] Multivessel CAD Aortic Valve Calcification- Severe Aortic Valve Insufficiency Mild - Moderate RECOMMENDATIONS Risk factor modification Medical therapy Surgery consult for coronary revascularization Surgery consult for Valve Replacement surgery Case discussed / reviewed with Dr. Amanda of Interventional Cardiology DESCRIPTION OF PROCEDURE The patient arrived to the procedure lab. The risks and benefits of the procedure as well as a full description of our services here and current unavailability of surgical backup were fully explained to the patient and/or their significant other prior to the catheterization. The Timeout was completed, verifying the correct patient and procedure. The patient's procedural site was prepped and draped in the usual fashion. Local anesthetic was given subcutaneously to right radial region with Lidocaine 2%. Using a modified Seldinger technique, arterial access was obtained via the right radial artery, a 6Fr sheath was inserted. Left Coronary Artery selective angiography was performed in multiple views using a 5 Fr. 4.0 [place] catheter. Right Coronary Artery selective angiography was then performed in multiple views using a 5 Fr. 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
--- NOTE | 2022-02-11 10:35 | CASEMGMT ---
BRIDGETTE CM Face to Face with patient for initial transition planning/care coordination assessment. RN CM introduced self and role at [facility]. Patient sitting at edge of bed, alert and oriented, daughter at bedside. Patient willing to participate in assessment and is able to answer all questions appropriately. Care providers, pharmacy, and demographics verified. Patient wishes to discharge home, denies need for home health at this time. Patient states he has no further needs or concerns at this time. CM to follow for discharge planning needs that may arise. PCP: No PCP, patient provide with Physician Directory and encouraged to get established with PCP. Specialists: none Preferred Pharmacy: [facility] Insurance: Moises PEREZ Prescription Benefit: yes Living Will/HPOA: none LNOK: daughter Living Arrangements: Patient lives alone in a 2 story home with bed and bath on second floor. Patient states he is independent and able to ambulate stairs. Transportation: self, daughter DME/HHC: Patient denies DME or previous HHC. Patient states he quit smoking about 5 weeks ago. Patient denies alcohol use. Disposition Plan: Patient to discharge home with family support and follow-up plans in place. Emy ALVA, RN, CM
--- NOTE | 2022-02-11 12:20 | PN.HOSP_ITS ---
Documented by User: Abby Shaver NP, DRUG WORKER-C 02/11/22 12:46 Subjective Subjective Patient seen and examined. Underwent heart cath this morning. Cardiology recommending transfer to tertiary facility for coronary revascularization as well as consideration for aortic valve replacement. Patient and family re questing [facility]. Objective Data Objective Data Vital Signs: Vital Signs Temp Pulse Resp BP Pulse Ox O2 Del Method 98.1 F 82 16 91/61 96 Room Air 02/11/22 09:40 02/11/22 11:55 02/11/22 11:55 02/11/22 11:55 02/11/22 11:55 02/11/22 11:55 Oxygen Delivery Method Room Air Weight: 119 lb 7.849 oz Body Mass Index (BMI) 19.1 Intake & Output: Intake and Output for Last 24 Hours 02/09/22 02/10/22 02/11/22 23:59 23:59 23:59 Intake Total 289.53 / 289.53 Output Total 200 / 200 Balance -200 / -200 289.53 / 289.53 Lab / Micro Data Result Diagrams: 02/11/22 05:38 02/11/22 05:38 Labs: Laboratory Results - last 24 hr 02/10/22 15:18: WBC 15.2 H, RBC 4.80, Hgb 12.8 L, Hct 40.6, MCV 84.6, MCH 26.7 L , MCHC 31.5 L, RDW Std Deviation 47.0 H, RDW Coeff of Leeanne 15.3 H, Plt Count 322, MPV 11.6, Immature Gran % (Auto) 0.800, Neut % (Auto) 80.6 H, Lymph % (Auto) 8.7 L, [place] % (Auto) 7.8, Eos % (Auto) 1.8, Baso % (Auto) 0.3, Absolute Neuts (auto) 12.3 H, Absolute Lymphs (auto) 1.32, Nucleated RBC % 0 02/10/22 15:18: PT 14.2, INR 1.1, APTT 29.5 02/10/22 15:18: Sodium 140, Potassium 4.3, Chloride 108 H, Carbon Dioxide 25.0, Anion Gap 7, BUN 20 H, Creatinine 0.97, Estim Creat Clear Calc 68.19, Est GFR (MDRD) Af Amer 98, Est GFR (MDRD) Non-Af 81, BUN/Creatinine Ratio 20.6 H, Glucos e 112 H, Calcium 9.3, Troponin I High Sens 1792 H* 02/10/22 15:18: B-Natriuretic Peptide 1013.2 H 02/10/22 17:18: PT 14.6, INR 1.2, APTT 32.7 02/10/22 18:30: Troponin I High Sens 2790 H* 02/10/22 21:30: Troponin I High Sens 2496 H* 02/10/22 23:20: APTT 39.6 H 02/11/22 05:38: WBC 13.0 H, RBC 4.46 L, Hgb 12.1 L, Hct 37.5 L, MCV 84.1, MCH 27.1, MCHC 32.3, RDW Std Deviation 45.8 H, RDW Coeff of [place]anne 15.2 H, Plt Count 273, MPV 11.9, Immature Gran % (Auto) 0.500, Neut % (Auto) 75.5 H, Lymph % (Auto) 11.8 L, [place] % (Auto) 8.6, Eos % (Auto) 3.0, Baso % (Auto) 0.6, Absolute Neuts (auto) 9.9 H, Absolute Lymphs (auto) 1.54, Nucleated RBC % 0 02/11/22 05:38: Sodium 139, Potassium 4.0, Chloride 105, Carbon Dioxide 27.0, Anion Gap 7, BUN 23 H, Creatinine 1.01, Estim Creat Clear Calc 52.17, Est GFR (MDRD) Af Amer 94, Est GFR (MDRD) Non-Af 78, BUN/Creatinine Ratio 22.8 H, Glucose 116 H, Calcium 8.9, Total Bilirubin 0.50, AST 39 H, ALT 32, Alkaline Phosphatase 76, Total Protein 6.2 L, Albumin 2.5 L, Globulin 3.7, Albumin/Globulin Ratio 0.7 L, Triglycerides 102, Cholesterol 149, LDL Cholesterol 93, VLDL Cholesterol 20, HDL Cholesterol 36 L 02/11/22 05:38: Magnesium 2.2 02/11/22 07:46: APTT 31.5 Radiography Diagnostic Testing: Radiology Impression Chest X-Ray 02/10/22 15:05 IMPRESSION: Findings suggestive of a mild degree of CHF superimposed on chronic interstitial fibrosis with blunting of both cause phrenic angles. Electronically Signed: Seven Zhang MD at 15:30 EDT , Echocardiogram 02/11/22 05:55 Interpretation Summary Mild segmental systolic dysfunction (see wall motion). The estimated ejection fraction is 45 %. Moderate focal mitral valve calcification of the anterior leaflet. Moderate (2+) eccentric mitral valve insufficiency. Trivial tricuspid valve insufficiency. The aortic valve leaflets are not well visualized, however, based upon the 2D echocardiographic images obtained, there appears to be thickening, calcification, and partial restriction. Severe aortic stenosis. Mild (1+) aortic valve insufficiency. Trivial pulmonic valve insufficiency. Echolucency c/w a pleural effusion. Right ventricular systolic pressure estimated to be 57 mmHg c/w pulmonary hypertension. Stage 3 diastolic dysfunction. Ordering Physician: Vanessa Ferguson Performed By: Kizzy Chandler JANNY Physical Exam Const alert and oriented x3 HEENT normocephalic and moist oral mucous membranes Eyes PERRL, EOMs intact bilaterally and conjunctivae normal Neck no lymphadenopathy Resp Auscultation: rales and diminished lung sounds Cardio regular rate and regular rhythm Heart Sounds: murmur Peripheral Pulses: pulses 2+ throughout GI normal to inspection, nondistended, normoactive bowel sounds, non-tender and non-distended Extremity normal to inspection General Extremity: edema bilateral lower extremity Details: mild Skin no rashes or lesions noted Lesions: no lesions Rashes: no rashes Trauma: no lacerations or abrasions Neuro CN's II-XII intact bilaterally, no focal motor deficits, no sensory deficits noted and deep tendon reflexes 2+ bilaterally Psych mental status grossly normal and affect normal Assessment & Plan Assessment/Plan (1) NSTEMI (non-ST elevated myocardial infarction): PLAN: Plan 1. NSTEMI-patient underwent heart cath which demonstrated underlying CAD involving the LAD and LCx distributions. Continue aspirin, statin, carvedilol. Cardiology recommending transfer to tertiary facility for coronary vascularization as well as aortic valve evaluation. Family requesting [facility]. 2. Severe aortic valve stenosis-transfer to tertiary facility for evaluation. 3. New onset heart failure with reduced ejection fraction-IV Lasix. Strict I&O. Daily weight. Echocardiogram demonstrates an EF of 45%, moderate mitral valve insufficiency, severe aortic stenosis. 4. Tobacco dependence- quit one month ago. Encouraged continued cessation. DVT prophylaxis- SCDs This patient was seen by Abby Shaver NP-C under the supervision of Dr. Rush. Time spent examining patient, reviewing data and subsequent management of care: 16 minutes Documented by User: Dr. Mohini Rush MD 02/11/22 14:43 Objective Data Lab / Micro Data Result Diagrams: 02/11/22 05:38 02/11/22 05:38 Assessment & Plan Assessment/Plan (1) NSTEMI (non-ST elevated myocardial infarction): Charges/Coding Addendum Addendum: This patient was seen in conjunction with Abby Shaver NP. I have independently interviewed and examined the patient and reviewed pertinent historical, laboratory, and other data. I have reviewed her note and concur with her documentation Patient was seen and examined. Denied any chest pain. He underwent cardiac cath that showed severe CAD as well as valvular heart disease. Physical Exam: Gen: Comfortable, not pale, not jaundiced CVS:HS I +II, regular, 3/6 holo systolic murmurs RESP: Diminished at lung bases GI: BS present and normal, soft, nontender, no palpable organs EXT:No edema ASSESSMENT: 1. Acute non-STEMI 2. New onset of heart failure with reduced EF, EF 45% 3. Severe aortic valve stenosis 4. Nicotine dependence Plan: Discussed with cardiology, will transfer patient to tertiary facility?family decided on [facility] Continue on Lasix, Coreg, atorvastatin, aspirin Time spent coordinating all aspects of patient's care, discussing with cardiology and nursin minutes Visit Charges Inpatient E&M: [id number] Subs Hosp L2
[2022-02-11] MEDS: Atorvastatin Calcium 40 MG Tablet PO (20:53)
[2022-02-12] VITALS (10 sets, daily range): BP systolic 93–108; BP diastolic 52–60; PULSE 67–91; RESP 16–18; TEMP 36.4–36.7; O2SAT 94–96
[2022-02-12] MEDS: Potassium Chloride Oral Tablet 20 MEQ PO (08:26)
[2022-02-12] MEDS: Aspirin 81 MG TAB.CHEW PO (08:26)
--- NOTE | 2022-02-12 11:34 | PN.CARD_ITS ---
Subjective Subjective The patient appears to be resting comfortably. He denies any ongoing chest discomfort at this time. He believes his breathing and his edema have improved overall. Objective Data Vital Signs: Vital Signs Temp Pulse Resp BP Pulse Ox O2 Del Method 98.0 F 86 18 98/56 L 96 Room Air 02/12/22 10:00 02/12/22 11:00 02/12/22 10:00 02/12/22 10:00 02/12/22 10:00 02/12/22 10:00 Oxygen Delivery Method Room Air Weight: 119 lb 7.849 oz Body Mass Index (BMI) 19.1 Intake & Output: Intake and Output for Last 24 Hours 02/10/22 02/11/22 02/12/22 23:59 23:59 23:59 Intake Total 749.53 / 749.53 440 / 440 Output Total 200 / 200 Balance -200 / -200 749.53 / 749.53 440 / 440 Lab / Micro Data Result Diagrams: 02/11/22 05:38 02/11/22 05:38 Micro: Microbiology 02/11/22 16:15 Nasal Secretion SARS-CoV-2 Antigen (Rapid) - Final Cardiology Labs/Tests Rhythm: Sinus rhythm; 1 episode appearing compatible with an idioventricular rhythm without obvious symptoms or compromise Physical Exam Const alert, oriented x3 and no apparent distress HEENT normocephalic, head/scalp atraumatic and hearing grossly normal bilaterally Eyes PERRL, EOMs intact bilaterally, conjunctivae normal and no scleral icterus Neck full ROM, supple and no JVD Carotids: delayed carotid upstroke Resp normal respiratory effort Auscultation: rales bilateral (Somewhat improved compared to previous examination) base Cardio regular rate, regular rhythm and S1 normal heart sound Heart Sounds: murmur systolic III/ harsh late left sternal border, LVOT and sternal notch to carotid arteries and abnormal sounds diminished A2 GI normal to inspection, nondistended, normoactive bowel sounds Extremity General Extremity: edema bilateral lower extremity Details: trace Skin no rashes or lesions noted Psych mental status grossly normal Assessment & Plan Assessment/Plan (1) NSTEMI (non-ST elevated myocardial infarction): PLAN: The patient has findings compatible with a non-ST segment elevation VT. Its unclear if he had a previous acute coronary syndrome event approximately 2 to 3 months ago based upon his history. He has proceeded with continued cardiac enzyme monitoring, ECG monitoring, transthoracic echocardiogram, and now diagnostic cardiac catheterization. His ECG does demonstrate changes in the anterolateral distribution compatible with myocardial ischemia. His transthoracic echocardiogram is as noted. His diagnostic cardiac catheterization does demonstrate the appearance of under lying CAD involving the LAD and LCx distributions. From a cardiac standpoint he would continue medical management as tolerated- taking into consideration the appearance of severe aortic valve stenosis. His case was discussed yesterday with Dr. De La Cruz of [facility] cardiology. He agreed to accept the patient in transfer for further evaluation and care. (2) Valvular heart disease: PLAN: The patient does have a cardiac murmur. Based upon his transthoracic echocardiogram there is supportive evidence that he has hemodynamically significant valvular heart disease with severe aortic valve stenosis as well as an element of moderate mitral valve regurgitation. Again, his case has been discussed that at [facility] cardiology for further evaluation and care. (3) CHF (congestive heart failure): PLAN: The patient also appears to have evidence of CHF based upon his history, exam, and his radiologic studies. This appears to be secondary to a combination of issues with respect to concerns of his somewhat diminished LV systolic function/LVEF as well as his valvular heart disease. Thus he will continue medical therapy locally. (4) Weight loss: PLAN: The patient states he has had a weight loss of approximately 20 pounds recently. It is unclear as to whether or not this is related to his underlying cardiovascular disease versus a noncardiac etiology. From a cardiac standpoint he will continue evaluation care as noted above. Addt'l Comments The patient's case was discussed and reviewed with patient and Dr. Rush. This note was generated using a voice recognition system and there may be incorrect words, spelling or punctuation that were not noted when reviewing the office note prior to saving. Procedure Criteria Type of Procedure Procedure Type: Elective Elective Risks - COVID COVID Risk Discussion: The surgeon/proceduralist and patient have discussed in detail the risk of exposure to and/or potential harm posed by the COVID-19 virus with having a surgery/procedure at this time versus the risk of delaying the surgery/procedur e. It is not possible to know either the risk of delaying the surgery or procedure or chance of getting an infection with perfect accuracy, but a joint decision was made between the patient and the surgeon/proceduralist to proceed at this time with the scheduled surgery/procedure as indicated on the consent form.
[2022-02-12] MEDS: Furosemide 20 MG Tablet PO (11:56)
--- NOTE | 2022-02-12 12:21 | PN.HOSP_ITS ---
Subjective Subjective Follow-up on acute non-STEMI/aortic stenosis: Patient was seen and examined. Denied new complaints. No acute events on telemetry. Awaiting bed with the [facility]. Objective Data Objective Data Vital Signs: Vital Signs Temp Pulse Resp BP Pulse Ox O2 Del Method 98.0 F 86 18 98/56 L 96 Room Air 02/12/22 10:00 02/12/22 11:00 02/12/22 10:00 02/12/22 10:00 02/12/22 10:00 02/12/22 10:00 Oxygen Delivery Method Room Air Weight: 54.2 kg Body Mass Index (BMI) 19.1 Intake & Output: Intake and Output for Last 24 Hours 02/10/22 02/11/22 02/12/22 23:59 23:59 23:59 Intake Total 749.53 / 749.53 440 / 440 Output Total 200 / 200 Balance -200 / -200 749.53 / 749.53 440 / 440 Medical Nutrition Assessment Dietitian: Malnutrition Criteria Met Start: 02/11/22 13:07 Freq: Status: Active Protocol: Document 02/11/22 13:07 (Rec: 02/11/22 13:07 [id number]) Nutrition Malnutrition Evidence of Malnutrition Exists Yes Malnutrition (severe): Chronic Evidenced By Suboptimal Energy Intake ( Severe),Weight Loss (Severe), Physical Changes (Severe) Clinical Problem Chronic Disease or Condition Related Malnutrition Etiology severe, chronic malnutrition related to inadequate energy intake Signs/Symptoms as evidenced by unintentional wt loss of 35.5#/23% < 1 year; estimated PO intake meeting < 75% of estimated energy needs >3 months; severe muscle wasting/fat loss evident in orbital, temporal, clavicle, and acromion areas per physical exam; BMI 17.1 Status Active Problem Recommendation Dietitian Recommendations/Changes cardiac diet as tolerated; will adjust to regular/no added salt if PO intake is poor at meals given malnutrition; will adjust Ensure to 120mL 4x/day between meals and add magic cup w/ dinner for additional calories /protein if consumed. Lab / Micro Data Result Diagrams: 02/11/22 05:38 02/11/22 05:38 Micro: Microbiology 02/11/22 16:15 Nasal Secretion SARS-CoV-2 Antigen (Rapid) - Final Physical Exam Narrative Physical Exam: Gen: Comfortable, not pale, not jaundiced CVS:HS I +II, regular, 3/6 holo systolic murmurs RESP: Diminished at lung bases GI: BS present and normal, soft, nontender, no palpable organs EXT:No edema Assessment & Plan Assessment/Plan (1) NSTEMI (non-ST elevated myocardial infarction): PLAN: Plan ASSESSMENT: 1.? Acute non-STEMI 2.? New onset of heart failure with reduced EF, EF 45% 3.? Severe aortic valve stenosis 4.? Nicotine dependence Plan: Await transfer to the [facility] Continue on Lasix, Coreg, atorvastatin, aspirin Continue to monitor on telemetry Charges/Coding Visit Charges Inpatient E&M: 23898 Subs Hosp L2
--- NOTE | 2022-02-12 18:12 | NURSING ---
Daughter upset regarding [facility] not having a bed available for the patient. Requesting patient to go to another hospital in the [place] area. Requesting to speak to Dr. Enciso. Dr. Enciso contacted regarding daughter wanting to speak to him. He will come after office hours. Daughter notified.
[2022-02-12] MEDS: Carvedilol 3.125 MG TABLET PO (20:59)
[2022-02-12] MEDS: Atorvastatin Calcium 40 MG Tablet PO (20:59)
--- NOTE | 2022-02-12 21:00 | NURSING ---
Daughter Elicia called with information regarding transfer. Will call with more information as becomes more available.
--- NOTE | 2022-02-12 22:22 | NURSING ---
Patients daughter was called with update including room number and facility per her request. Pt will be transferred to [facility] room 7040
[2022-02-13 00:55] VITALS: BP 97/58; PULSE 79; RESP 16; TEMP 36.6; O2SAT 92
--- NOTE | 2022-02-13 09:04 | PCM.DC.SUM ---
Providers Date of Admission: 02/10/22 Date of Discharge: 02/13/22 Primary Care Physician: Florencia Primary Care Phys Consultations 02/10/22 18:23 Consult: Cardiology Routine Consulting Provider: Kalia Enicso Reason for Consult: Chest Pain EMERGENT Consult: No MD Notified: Yes Date Notified: 02/10/22 Time Notified: 17:38 Method of Notification: ED Physician Initiated Reason For Visit: NSTEMI, CHF Diagnosis Discharge Diagnosis (1) NSTEMI (non-ST elevated myocardial infarction): Status: Acute Code(s): I21.4 - Non-ST elevation (NSTEMI) myocardial infarction Plan 1.? Acute non-STEMI 2.? New onset of heart failure with reduced EF/combined, EF 45%, stage 3 diastolic dysfunction 3.? Severe aortic valve stenosis 4.? Nicotine dependence Medications at Discharge Home Medications NK 02/10/22 Hospital Course Operations None Procedures 2-D Echocardiogram and Cardiac catheterization Summary of Care Provided Minutes Spent on Discharge: 45 Hospital Course: 72 y/o male with PMHx of Anxiety/depression, seizure disorder, chronic smoker who presents with progressive SOB. Been going on for more than a month. He quit smoking around that time. He denied any cardiac history. A day prior to admission patient felt short of breath and was diaphoretic. His vitals in the emergency room were stable. His troponin was elevated initially 1792. BNP was 1013. Chest x-ray shows vascular congestion. His admitting blood work otherwise were unremarkable. Patient was admitted to the progressive care unit, monitored on telemetry, 2D echo ordered, cardiology consulted. His EF was 45% with grade 3 diastolic dysfunction, severe aortic stenosis, pulmonary hypertension with RVSP of 57. His troponins trended to 1792-->2790-->2496. He underwent cardiac catheterization which showed moderate calcification in the left main, LAD had mild luminal irregularities, proximal LAD moderate calcification, distal LAD had angiographic findings correlating with an intramyocardial cardiac bridge with decreased flow during systole, proximal circumflex artery showed moderate calcification with 75% stenosis, RCA was angiographically normal. Patient was recommended to transfer to tertiary facility for surgical consult for coronary revascularization as well as valve replacement surgery. Patient preferred to be transferred to the [facility]. He was accepted. He however was waiting on a bed for couple of days. The family insisted on patient being transferred somewhere else as they felt the wait was long. Patient was accepted at [facility]. He was discharged on the morning of 02/13/2022 Physical Exam Narrative Physical Exam: Gen: Comfortable, not pale, not jaundiced, cachetic CVS:HS I +II, regular, 3/6 holo systolic murmurs RESP: Diminished at lung bases GI: BS present and normal, soft, nontender, no palpable organs EXT:No edema Weight / BMI Weight Weight: 54.2 kg Body Mass Index (BMI) 19.1 ABG / Lab / Microbiology Data Result Diagrams: 02/11/22 05:38 02/11/22 05:38 Microbiology: Microbiology 02/11/22 16:15 Nasal Secretion SARS-CoV-2 Antigen (Rapid) - Final D/C Instructions Discharge Diet: Low fat / Low cholesterol and 2000 mg Sodium Diet Meaningful Use Info Meaningful Use Diagnoses (Choose all that apply): None applicable Discharge Plan Admission Admit Date/Time: 02/10/22 17:33 Primary Reason for Your Visit: SOB Attending Provider: Mohini Rush Primary Care Provider: Care Physician,No Primary Consulting Providers: Kalia Enciso ; Aravind Cruz Discharge Orders/Prescriptions Prescriptions: No Action NK Referrals / Follow Up: Care Physician,No Primary [Primary Care Provider] - Disposition Disposition (needs filled in before D/C Order can be placed): DC/Tx to Another Type of HCF Charges/Coding Visit Charges Inpatient E&M: 44708 Disch Hosp
== END 2022-02-13 01:40 | disposition short-term general hospital (02) | DRG 280 ==
LOC: ED 15:00 → PCU 17:43
PROVIDERS: Hospitalist; Nurse Practitioner Family; Admitting Provider Internal Medicine; Emergency Provider Emergency Medicine; Visit Provider Internal Medicine
DX: I21.4 Non-ST elevation (NSTEMI) myocardial infarction (principal); I50.21 Acute systolic (congestive) heart failure; E43 Unspecified severe protein-calorie malnutrition; Z68.1 Body mass index [BMI] 19.9 or less, adult; I27.20 Pulmonary hypertension, unspecified; I08.0 Rheumatic disorders of both mitral and aortic valves; I25.10 Atherosclerotic heart disease of native coronary artery without angina pectoris; Z87.891 Personal history of nicotine dependence
CPT/HCPCS: 36415; 71046; 80048; 80053; 80061; 83735; 83880; 84484; 85025; 85610; 85730; 87811; 93005; 93306; 93454; 97802; 99152; 99153; 99251; 99285; 99406; J7030; Q9967; A4216; C1769; C1894; G0463; J1940

== ENCOUNTER → 2022-06-30 | Outpatient (CLI) | payer MEDICARE, OTHER, SELFPAY ==
--- NOTE | 2022-06-30 12:59 | ECHOD_ITS ---
Reason For Study: Re Evaluate EF post Valve and CABG Procedure This was a 2D Doppler, Color Flow transthoracic echocardiogram. The study was technically difficult. Exam performed in department. Left Ventricle Normal LV size. Left ventricular systolic function is normal. The estimated ejection fraction is 65 %. Post operative septal motion. No evidence for diastolic dysfunction. Right Ventricle Normal RV size. Normal systolic function. Atria Normal left atrium. Normal right atrium. No doppler evidence for ASD. Mitral Valve There is no mitral annular calcification. Moderate focal mitral valve calcification of the anterior leaflet. Mild (1+) mitral valve insufficiency. Tricuspid Valve Normal tricuspid valve. Trivial tricuspid valve insufficiency. Unable to estimate RV systolic pressure/pulmonary artery pressure due to technically difficult study. Aortic Valve Stable appearing bioprosthetic aortic valve apparatus. Mild transvalvular insufficiency of the aortic valve. Pulmonic Valve The pulmonic valve is not well visualized. Great Vessels The aortic root is not well visualized. Pericardium/Pleural No pericardial effusion. MMode/2D Measurements & Calculations LVIDd: 4.6 cm IVSd: 0.97 cm LVOT diam: 2.0 cm LVIDs: 2.9 cm LVPWd: 1.00 cm LVOT area: 3.2 cm2 RVDd: 3.0 cm FS: 36.9 % LA dimension: 3.2 cm LAV(MOD-bp): 30.6 ml LA A4 area: 12.3 cm2 LAV(MOD-bp) Indexed: 17.7 ml/m2 LAV(MOD-sp2): 33.3 ml LAV(MOD-sp4): 28.0 ml RA A4 area: 10.2 cm2 Time Measurements MV dec time: 0.40 sec Doppler Measurements & Calculations MV E max josh: 57.7 cm/sec Lat Peak E' Josh: 7.9 cm/sec Med Peak E' Josh: 6.7 cm/sec MV A max josh: 100.1 cm/sec E/E' lat: 7.3 E/E' med: 8.6 MV E/A: 0.58 MV V2 max: 113.8 cm/sec MV dec slope: 145.6 cm/sec2 Ao V2 max: 226.6 cm/sec MV max P.2 mmHg Ao max P.6 mmHg MV V2 mean: 53.0 cm/sec Ao V2 mean: 144.5 cm/sec MV mean P.4 mmHg Ao mean P.0 mmHg MV V2 VTI: 29.1 cm Ao V2 VTI: 40.4 cm MVA(VTI): 2.7 cm2 AV (velocity ratio): 0.60 МАРИЯ(I,D): 1.9 cm2 МАРИЯ(V,D): 2.0 cm2 AI max josh: 458.4 cm/sec LV V1 max: 139.2 cm/sec SV(LVOT): 77.1 ml AI max P.3 mmHg LV V1 max P.8 mmHg LV V1 mean P.6 mmHg AI dec slope: 205.7 cm/sec2 LV V1 mean: 87.1 cm/sec AI P1/2t: 652.6 msec LV V1 VTI: 24.1 cm PA V2 max: 107.0 cm/sec PA V2 mean: 72.1 cm/sec ECHO/Echo Complete Interpretation Summary The study was technically difficult. Left ventricular systolic function is normal. The estimated ejection fraction is 65 %. Post operative septal motion. Moderate focal mitral valve calcification of the anterior leaflet. Mild (1+) mitral valve insufficiency. Trivial tricuspid valve insufficiency. Stable appearing bioprosthetic aortic valve apparatus. Mild transvalvular insufficiency of the aortic valve. Unable to estimate RV systolic pressure/pulmonary artery pressure due to techni clary difficult study. No evidence for diastolic dysfunction. Ordering Physician: Ricky Jarquin Referring Physician: Ashley Valladares Performed By: Salvador Arredondo RCS
== END | disposition home or self-care (01) ==
LOC: CVS 12:58
PROVIDERS: PCP Nurse Practitioner Family; Referring Provider Nurse Practitioner Family; Visit Provider Nurse Practitioner Family
DX: R01.1 Cardiac murmur, unspecified (principal); I25.5 Ischemic cardiomyopathy; Z95.3 Presence of xenogenic heart valve; Z95.1 Presence of aortocoronary bypass graft
CPT/HCPCS: 93306

== ENCOUNTER → 2024-08-23 | Outpatient (CLI) | payer MEDICARE, OTHER, SELFPAY ==
--- NOTE | 2024-08-23 12:42 | ECHOD_ITS ---
Reason For Study Reason For Study: Evaluate EF and AV Procedure This was a 2D Doppler, Color Flow transthoracic echocardiogram. Technically difficult study due to patients body habitus. Exam performed in department. Left Ventricle Normal size and thickness. The left ventricular ejection fraction is 65 %. No evidence for diastolic dysfunction. Right Ventricle Normal right ventricle. Atria The left and right atria are normal. Mitral Valve Moderate mitral annular calcification. Trivial mitral valve insufficiency. Tricuspid Valve Normal tricuspid valve. Aortic Valve Bioprosthetic aortic valve leaflets mildly thickened and calcified. Mean peak gradient 23 mmHg. Aortic valve area 1.0 cm??. Mild aortic valve regurgitation. Pulmonic Valve The pulmonic valve is not well visualized. Great Vessels The aortic root is not well visualized. Pericardium/Pleural No pericardial effusion. MMode/2D Measurements & Calculations LVIDd: 4.5 cm IVSd: 0.86 cm LVOT diam: 2.1 cm LVIDs: 2.9 cm LVPWd: 1.0 cm LVOT area: 3.4 cm2 RVDd: 3.4 cm FS: 35.7 % LA dimension: 3.8 cm LAV(MOD-bp): 23.3 ml LVAd ap4: 23.4 cm2 LAV(MOD-bp) Indexed: 12.9 ml/m2 LVLd ap4: 7.4 cm LAV(MOD-sp2): 28.7 ml EDV(MOD-sp4): 60.8 ml LAV(MOD-sp4): 18.5 ml EDV(sp4-el): 63.2 ml LVAs ap4: 13.4 cm2 LVLs ap4: 6.5 cm ESV(MOD-sp4): 23.4 ml ESV(sp4-el): 23.4 ml EF(MOD-sp4): 61.6 % EF(sp4-el): 63.0 % SV(MOD-sp4): 37.4 ml SV(sp4-el): 39.8 ml Aortic Valve Planimetry: 1.3 cm2 SI(MOD-sp4): 20.8 ml/m2 LA A4 area: 10.1 cm2 RA A4 area: 9.3 cm2 Time Measurements MV dec time: 0.23 sec Doppler Measurements & Calculations MV E max josh: 73.7 cm/sec Lat Peak E' Josh: 9.8 cm/sec Med Peak E' Josh: 8.5 cm/sec MV A max josh: 112.1 cm/sec E/E' lat: 7.5 E/E' med: 8.7 MV E/A: 0.66 MV V2 max: 120.8 cm/sec MV P1/2t max josh: 86.3 cm/sec Ao V2 max: 335.9 cm/sec MV max P.8 mmHg MV P1/2t: 72.0 msec Ao max P.2 mmHg MV V2 mean: 67.2 cm/sec Ao V2 mean: 224.1 cm/sec MV mean P.2 mmHg MV dec slope: 350.7 cm/sec2 Ao mean P.5 mmHg MV V2 VTI: 26.6 cm MVA(P1/2t): 3.1 cm2 Ao V2 VTI: 59.7 cm AV (velocity ratio): 0.29 MVA(VTI): 2.3 cm2 МАРИЯ(I,D): 1.0 cm2 МАРИЯ(V,D): 0.95 cm2 AI max josh: 388.2 cm/sec LV V1 max: 92.8 cm/sec SV(LVOT): 60.1 ml AI max P.9 mmHg LV V1 max P.4 mmHg LV V1 mean P.9 mmHg AI dec slope: 198.4 cm/sec2 LV V1 mean: 65.5 cm/sec AI P1/2t: 573.0 msec LV V1 VTI: 17.5 cm ECHO/Echo Complete Interpretation Summary The left ventricular ejection fraction is 65 %. No evidence for diastolic dysfunction. Moderate mitral annular calcification. Bioprosthetic aortic valve leaflets mildly thickened and calcified. Mean peak g radient 23 mmHg. Aortic valve area 1.0 cm??. Mild aortic valve regurgitation. Technically difficult study. Ordering Physician: Ricky Jarquin Referring Physician: Ricky Jarquin Performed By: Salvador Arredondo RCS
== END | disposition home or self-care (01) ==
LOC: CVS 12:42
PROVIDERS: PCP Nurse Practitioner Family; Referring Provider Nurse Practitioner Family; Visit Provider Nurse Practitioner Family
DX: I25.5 Ischemic cardiomyopathy (principal); Z95.1 Presence of aortocoronary bypass graft; Z95.3 Presence of xenogenic heart valve
CPT/HCPCS: 93306

== ENCOUNTER → 2025-01-15 | Outpatient (CLI) | payer MEDICARE, OTHER, SELFPAY ==
--- NOTE | 2025-01-15 08:46 | CDU_ITS ---
Reason For Study Reason For Study: Carotid Bruit Rt. Velocities/BP Lt. Velocities/BP Prox CCA 59/14 cm/sec. Prox CCA 78/18 cm/sec. Mid CCA 71/19 cm/sec. Mid CCA 78/20 cm/sec. Dist CCA 71/23 cm/sec. Dist CCA 79/22 cm/sec. Prox ICA 81/20 cm/sec. Prox ICA 134/38 cm/sec. Mid ICA 75/21 cm/sec. Mid ICA 100/38 cm/sec. Dist ICA 111/27 cm/sec. Dist ICA 84/28 cm/sec. Rt. ICA/CCA = 1.6. Lt. ICA/CCA = 1.71. Prox ECA 58/5 cm/sec. Prox ECA 125/7 cm/sec. Rt. Vert. 90/24 cm/sec. Lt. Vert. 56/11 cm/sec. Right Extracranial There is heterogeneous, irregular atherosclerotic plaque noted in the right common carotid artery. There is heterogeneous, irregular atherosclerotic plaque noted in the right internal carotid artery. There is intimal thickening but no significant atherosclerotic plaque noted in the right external carotid artery. Antegrade flow is noted in the right vertebral artery. Left Extracranial There is heterogeneous, irregular atherosclerotic plaque noted in the left common carotid artery. There is heterogeneous, irregular atherosclerotic plaque noted in the left internal carotid artery. There is heterogeneous, irregular atherosclerotic plaque noted in the left external carotid artery. Antegrade flow is noted in the left vertebral artery. Procedure Carotid Duplex 87892. This is a Carotid Duplex examination using B-mode, color flow and specral Doppler. Exam performed in department. VL/Carotid Duplex Ultrasound Interpretation Summary Mild (<50%) stenosis right extracranial internal carotid. Moderate (50-69%) stenosis left extracranial internal carotid. Patent and antegrade vertebrals bilaterally. Ordering Physician: Elmer Adamson Referring Physician: Ashley Valladares Performed By: Delfina Jarquin, RDCS, RVT
[2025-01-15 10:08] LABS: AST(SGOT) 26 U/L (<=37); Alanine Aminotransfer ALT/SGPT 13 U/L (<=46); Albumin, Serum 3.7 g/dL (3.4-4.8); Alkaline Phosphatase 89 U/L (40-129); Anion Gap 10 (5-15); BUN 21 mg/dL (4-19); BUN/Creat Ratio 19.7 RATIO (10-20); Calcium,Total 9.4 mg/dL (7.6-11.0); Carbon Dioxide 26.3 mmol/L (21.0-32.0); Chloride 104 mmol/L (98-108); Cholesterol 113 mg/dL (<=200); Globulin 2.8 g/dL (2.2-4.2); Glucose 99 mg/dL (70-99); Low Density Lipoprotein Calc. 23 mg/dL; Potassium 4.8 mmol/L (3.3-5.1); Triglycerides 282 mg/dL; Very Low Density Lipoprotein 56 mg/dL (5-40); cholesterol:hdl ratio screen 3.35
== END | disposition home or self-care (01) ==
LOC: CVS 08:42
PROVIDERS: PCP Nurse Practitioner Family; Referring Provider Internal Medicine Cardiovascular Disease; Visit Provider Internal Medicine Cardiovascular Disease
DX: R09.89 Other specified symptoms and signs involving the circulatory and respiratory systems (principal); E11.9 Type 2 diabetes mellitus without complications; E78.5 Hyperlipidemia, unspecified; I79.8 Other disorders of arteries, arterioles and capillaries in diseases classified elsewhere; I25.10 Atherosclerotic heart disease of native coronary artery without angina pectoris; I10 Essential (primary) hypertension
CPT/HCPCS: 36415; 80053; 80061; 93880